=== PATIENT | female | born 1980 | race American Indian/Alaskan Native ===

== ENCOUNTER 2016-10-04 09:53 | Inpatient (IN) | payer BC ==
--- NOTE | 2016-10-04 10:00 | History and Physical Report ---
History of Present Illness Chief complaint: abdominal pain, nauseas and vomiting History of present illness: 36 y.o AAF known to my practice who after an episode of n/v and abdominal pain presents to my office. Treated symptomatically and ordered lab which reveals amylase and lipase levels extremely high. Known for previous pancreatitis and gallbladder surgery for stone. Past History Past Medical History: hyperlipidemia, other (Pancreatitis) Past Surgical History: No surgical history, cholecystectomy Social history: single Family history: no significant family history Medications and Allergies Allergies Allergy/AdvReac Type Severity Reaction Status Date / Time No Known Allergies Allergy Verified 05/12/13 09:22 Home Medications Medication Instructions Recorded Confirmed Last Taken Type ALBUTEROL Inhaler [Proair] 2 puff IH QID PRN 04/21/13 10/04/16 Unknown History Acetaminophen/Codeine [Tylenol #3] 1 tab PO Q6H PRN #15 tab 04/22/13 10/04/16 Unknown Rx Cyclobenzaprine [Flexeril] 10 mg PO TID PRN #15 tablet 05/12/13 10/04/16 Unknown Rx Hydrocodone Bit/Acetaminophen 1 each PO Q8H PRN #15 tablet 05/12/13 10/04/16 Unknown Rx [Lortab 7.5-500 mg] Ibuprofen [Motrin 800 MG tab] 800 mg PO TID #30 tablet 05/12/13 10/04/16 Rx Exam - Constitutional General appearance: Present: no acute distress, well-nourished - EENT Eyes: Present: PERRL ENT: hearing intact, clear oral mucosa - Neck Neck: Present: supple, normal ROM - Respiratory Respiratory effort: normal Respiratory: bilateral: CTA - Cardiovascular Heart Sounds: Present: S1 & S2. Absent: rub, click - Extremities Extremities: pulses symmetrical, No edema Peripheral Pulses: within normal limits - Abdominal General gastrointestinal: Present: soft, non-tender, non-distended, normal bowel sounds Localized gastrointestinal: tender: diffuse Female genitourinary: Present: deferred, normal - Rectal Rectal Exam: deferred - Integumentary Integumentary: Present: clear, warm, dry - Musculoskeletal Musculoskeletal: gait normal, strength equal bilaterally - Psychiatric Psychiatric: appropriate mood/affect, intact judgment & insight - Neurologic Neurologic: CNII-XII intact, moves all extremities Assessment and Plan - Patient Problems (1) Abdominal pain Current Visit: Yes Status: Acute Qualifiers: Abdominal location: periumbilical Qualified Code(s): R10.33 - Periumbilical pain Plan to address problem: Analgesics ordered (2) Acute pancreatitis Current Visit: Yes Status: Acute Qualifiers: Pancreatitis type: biliary Acute pancreatitis complication: A Plan to address problem: NPO and IVF's ordered CT of the abdomen ordered
[2016-10-04] MEDS ORDERED: NORCO 5/325 PO PRN (14:00)
[2016-10-04 15:18] LABS: Bilirubin,Urine NEG (Negative); Blood,Urine SM (Negative); Ketones,Urine NEG (Negative); Leukocyte Esterase,Urine NEG (Negative); Nitrite,Urine NEG (Negative); Protein,Urine <15 mg/dL mg/dL (Negative); Urobilinogen,Urine < 2.0 mg/dL (<2.0); WBC,Urine < 1.0 /HPF (0.0-6.0)
[2016-10-04] MEDS: D5NS 1,000 ML IV SCH (17:23)
--- NOTE | 2016-10-04 17:47 | Cat Scan Report ---
FINAL REPORT PROCEDURE: CT ABDOMEN W CON TECHNIQUE: Computerized axial tomography of the abdomen was performed following the IV injection of iodinated nonionic contrast. HISTORY: ACUTE PANCREATITIS COMPARISON: No prior studies are available for comparison. FINDINGS: Visualized lower thorax: No significant abnormality. Liver: Diffuse fatty infiltration of liver with multiple low attenuated lesions likely multiple small cysts in the 5 millimeter or smaller range. Followup ultrasound may be warranted to further evaluate as indicated. There is no hyper enhancing mass suspected at this time. Spleen: Normal size and attenuation. Gallbladder and biliary system: Metallic clips from prior cholecystectomy. Post cholecystectomy reservoir effect Pancreas: Very faint stranding around the pancreatic head with peripancreatic lymph nodes in the 1-1.5 centimeter range Adrenals: Normal. Kidneys: Normal. GI tract: Contrast in portions of small bowel. Moderate stool in the large bowel. Portions of appendix appear normal. Lymph nodes and mesentery: Scattered mild mesenteric lymphadenopathy in the peripancreatic area pre celiac pre gastric retroperitoneal and mesenteric root regions. Vasculature: Mixed attenuation pattern in the supra renal IVC. Non opacification of the infrarenal cava. Peritoneum: No free fluid. Musculoskeletal structures: No significant abnormality. Other: Tiny umbilical herniation fat. IMPRESSION: Faint or trace early pancreatitis near the pancreatic head suspected Mild mesenteric lymphadenopathy including peripancreatic distribution Small cystic changes liver
[2016-10-04] MEDS: COLACE PO SCH (21:54)
[2016-10-05] MEDS: D5NS 1,000 ML IV SCH ×3 (01:37→17:50)
[2016-10-05] MEDS: COLACE PO SCH (09:09)
[2016-10-05 15:37] LABS: Amylase 91 units/L (27-131); Lipase 47 units/L (13-60)
--- NOTE | 2016-10-05 16:05 | Discharge Summary ---
Providers - Providers Date of Admission: 10/04/16 14:01 Attending physician: MELANIE HANLEY Primary care physician: MELANIE HANLEY Hospitalization Condition: Good Hospital course: Admitted for observation following an acute abdominal pain associated with nauseas and vomiting. Lipase and amylase were reported extremely high([id number]) . Placed in NPO and 24 hrs lare episode of acute pancreatitis was resolved Sent home with 7 days f/u Disposition: DISCHARGED TO HOME OR SELFCARE - Discharge Diagnoses (1) Abdominal pain Status: Acute Qualifiers: Abdominal location: periumbilical Qualified Code(s): R10.33 - Periumbilical pain (2) Acute pancreatitis Status: Acute Qualifiers: Pancreatitis type: biliary Acute pancreatitis complication: A Core Measure Documentation - Palliative Care Palliative Care/ Comfort Measures: Not Applicable - Core Measures Any of the following diagnoses?: none Exam - Constitutional Vitals: Temp Pulse Resp BP Pulse Ox 97.9 F 61 18 116/60 100 10/05/16 12:00 10/05/16 12:00 10/05/16 12:00 10/05/16 12:00 10/05/16 12:00 General appearance: Present: no acute distress, well-nourished - EENT Eyes: Present: PERRL ENT: hearing intact, clear oral mucosa - Neck Neck: Present: supple, normal ROM - Respiratory Respiratory effort: normal Respiratory: bilateral: CTA - Cardiovascular Heart Sounds: Present: S1 & S2. Absent: rub, click - Extremities Extremities: pulses symmetrical, No edema Peripheral Pulses: within normal limits - Abdominal General gastrointestinal: Present: soft, non-tender, non-distended, normal bowel sounds Female genitourinary: Present: normal - Integumentary Integumentary: Present: clear, warm, dry - Musculoskeletal Musculoskeletal: gait normal, strength equal bilaterally - Psychiatric Psychiatric: appropriate mood/affect, intact judgment & insight - Neurologic Neurologic: CNII-XII intact, moves all extremities Plan Follow up with: MELANIE HANLEY MD [Primary Care Provider] - 7 Days
[2016-10-05 20:31] VITALS: BP 130/74
== END 2016-10-05 20:30 | disposition home or self-care (01) | DRG 440 ==
LOC: UNDOADMOB 09:53 → 4A 09:53 → EDSTATUS 13:53 → 4A 14:01
PROVIDERS: ADMIT Internal Medicine; ATTEND Internal Medicine
DX: K85.90 Acute pancreatitis without necrosis or infection, unspecified (principal); E78.5 Hyperlipidemia, unspecified
CPT/HCPCS: 36415; 74160; 81001; 82150; 83690; 87086; J7042; Q9967

== ENCOUNTER 2017-10-28 11:20 | Outpatient (CLI) | payer BC ==
--- NOTE | 2017-10-28 16:36 | Ultrasound Report ---
RIGHT DIGITAL DIAGNOSTIC MAMMOGRAM with CAD and RIGHT BREAST ULTRASOUND: 10/28/17 11:20:00 CLINICAL: Followup of a probably benign process by ultrasound and probably benign mammographic asymmetries. A biopsy was recommended after a [facility] ultrasound 05/02/17. However when Dr. Trivedi saw the patient for biopsy in July 2017, the abnormality had resolved. Her clinical impression was that she probably had had mastitis which had resolved. COMPARISON:[facility] 05/02/17 mammogram and right breast ultrasound. FINDINGS: The breast is heterogeneously dense, which may obscure small masses.No mass, architectural distortion or suspicious calcifications. The previously described asymmetry on the MLO view has resolved. Ultrasound of the right breast (including all four quadrants and the retroareolar area) was performed and demonstrated normal retroareolar fibroglandular and fatty structures. The previously described retroareolar hypodense masses has resolved. A few retroareolar fat lobules are prominent because they are isolated by surrounding fibroglandular structures. IMPRESSION: Negative mammogram and probably benign retroareolar prominent fat lobules. BI-RADS CATEGORY: 3 - - Probably Benign RECOMMENDATION: Six month followup right mammogram and right breast ultrasound. ACR BI-RADS MAMMOGRAPHIC CODES: 0 = Needs additional imaging evaluation; 1 = Negative; 2 = Benign; 3 = Probably benign; 4 = Suspicious; 5 = Malignant; 6 = Known biopsy-proven malignancy COMMENT: 1. Dense breast tissue, i.e., adenosis, fibrocystic changes, etc., may obscure an underlying neoplasm. 2. Approximately 10% of cancers are not detected with mammography. 3. A negative mammography report should not delay biopsy if a clinically suspicious mass is present. COMMENT: Patient follow-up letters are generated by our [employer] application.
== END 2017-10-28 11:21 | disposition home or self-care (01) ==
LOC: SPVWC 11:20
PROVIDERS: ATTEND Surgery
DX: R92.8 Other abnormal and inconclusive findings on diagnostic imaging of breast (principal)